=== PATIENT | male | born 1985 | race African-American/Black ===

== ENCOUNTER 2020-08-18 17:22 | Emergency (ER) | payer OTHER ==
[~2020-08-18] VITALS: Ht 182.9 cm; Wt 109.0 kg
[2020-08-18] MEDS ORDERED: VISCOUS LIDOCAINE 2% 15 ML UDC PO STA (18:04)
[2020-08-18] MEDS ORDERED: MAGNESIUM/ALUMINUM HYDROXIDE/SIMETHICONE 30ML UDC PO STA (18:04)
[2020-08-18] MEDS ORDERED: METOCLOPRAMIDE HCL 10MG/2ML VIAL IV STA (18:04)
[2020-08-18 18:15] LABS: BASOPHILS % 1.1 % (0.0-2.0); EOSINOPHILS % 0.6 % (0.0-5.0); HEMATOCRIT. 45.1 % (42.0-52.0); HEMOGLOBIN. 15.1 g/dL (14.0-18.0); MEAN CORPUSCULAR HEMOGLOBIN 27.7 pg (28.0-32.0); MEAN CORPUSCULAR VOLUME 82.8 fL (80.0-94.0); MEAN PLATELET VOLUME 10.2 fl (7.4-10.4); MONOCYTES % 9.7 % (2.0-8.0); NEUTROPHILS % 61.6 % (40.0-76.0); PLATELET 203 x1000/uL (130-400); RED BLOOD CELL COUNT 5.45 mill/uL (4.7-6.1)
[2020-08-18 18:34] LABS: CHLORIDE 103 mEq/L (98-107)
[2020-08-18] MEDS ORDERED: PANT20TA17 MT (18:55)
[2020-08-18] MEDS ORDERED: PANTOPRAZOLE 40MG DR TABLET PO ONE (19:00)
[2020-08-18 19:11] VITALS: BP 135/88
== END 2020-08-18 19:12 | disposition home or self-care (01) ==
LOC: ER 17:22
DX: K21.9 Gastro-esophageal reflux disease without esophagitis (principal); R03.0 Elevated blood-pressure reading, without diagnosis of hypertension; K29.70 Gastritis, unspecified, without bleeding
CPT/HCPCS: 36415; 80053; 83690; 85025; 93005; 96374; 99284; J2765